=== PATIENT | female | born 1940 | race Caucasian/White ===

== ENCOUNTER 2019-09-19 00:51 | Emergency (ER) | payer MEDICARE, OTHER ==
[2019-09-19] MEDS ORDERED: NORMAL SALINE 1000 ML 1,000 ML IV ONE (01:45)
[2019-09-19] MEDS ORDERED: ONDANSETRON HCL INJ/PF 4 MG/2 ML SDV IV ONE (01:45)
[2019-09-19 02:06] LABS: ALBUMIN 4.4 g/dL (3.5-5.0); ALKALINE PHOSPHATASE 96 U/L (38-126); ANION GAP 12 (5-19); ASPARTATE AMINO TRANSFERASE 36 U/L (14-36); BILIRUBIN,DIRECT 0.1 mg/dL (0.0-0.4); BLOOD UREA NITROGEN 15 mg/dL (7-20); CALCIUM 9.7 mg/dL (8.4-10.2); CARBON DIOXIDE 27 mmol/L (22-30); CHLORIDE 102 mmol/L (98-107); GLUCOSE 197 mg/dL (75-110); POTASSIUM 3.6 mmol/L (3.6-5.0); TOTAL PROTEIN 7.6 g/dL (6.3-8.2)
[2019-09-19] MEDS ORDERED: MORPHINE SULFATE 10 MG/ML INJ IV ONE ×2 (02:15→03:17)
[2019-09-19 02:21] LABS: ABSOLUTE BASOPHILS # (AUTO) 0.1 10^3/uL (0.0-0.2); ABSOLUTE EOSINOPHILS # (AUTO) 0.1 10^3/uL (0.0-0.6); ABSOLUTE LYMPHOCYTES (AUTO) 1.6 10^3/uL (0.5-4.7); ABSOLUTE MONOCYTES (AUTO) 0.7 10^3/uL (0.1-1.4); ABSOLUTE NEUT (AUTO) 11.4 10^3/uL (1.7-8.2); BASOPHILS % (AUTO) 0.7 % (0-2); EOSINOPHILS % (AUTO) 0.8 % (0-6); HEMATOCRIT 40.1 % (36.0-47.0); HEMOGLOBIN 13.2 g/dL (12.0-15.5); LYMPHOCYTES % (AUTO) 11.4 % (13-45); MEAN CORPUSCULAR HEMOGLOBIN 28.2 pg (27.0-33.4); MEAN CORPUSCULAR HGB CONC 32.9 g/dL (32.0-36.0); MEAN CORPUSCULAR VOLUME 86 fl (80-97); PLATELET COUNT 228 10^3/uL (150-450); RED BLOOD COUNT 4.69 10^6/uL (3.72-5.28); RED CELL DISTRIBUTION WIDTH 14.7 % (11.5-14.0); SEGMENTED NEUTROPHILS % (AUTO) 82.1 % (42-78); TOTAL CELLS COUNTED % (AUTO) 100 %; WHITE BLOOD COUNT 13.9 10^3/uL (4.0-10.5)
--- NOTE | 2019-09-19 03:36 | RADIOLOGY REPORT (SQ) ---
CT abdomen and pelvis with contrast on 09/19/2019 at 2:44 AM CLINICAL INDICATION: Generalized abdominal pain, nausea and vomiting and diarrhea TECHNIQUE: Multiple axial images are obtained throughout the abdomen and pelvis following the administration of IV contrast, 89 mL of Omnipaque 350contrast was administered intravenously without complication. This exam was performed according to our departmental dose-optimization program, which includes automated exposure control, adjustment of the mA and/or kV according to patient size and/or use of iterative reconstruction technique. Total DLP is 1088.8 mGy*cm. COMPARISON: None FINDINGS: Abdomen: There is a trace right pleural effusion. There is septal thickening in the lung bases suggesting mild edema. There is a very small hiatal hernia. There is fatty infiltration of the liver. The patient is status post cholecystectomy. Solid abdominal organs are otherwise unremarkable. Mild vascular calcifications are noted. There is no abdominal adenopathy. 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 It is unknown how acute or chronic the SMA occlusion is. The CHULA appears patent. There is no free fluid or free air within the abdomen. The abdominal portion of the GI tract is unremarkable. No pneumatosis or definite evidence of bowel ischemia is noted. Pelvis: The patient is status post hysterectomy. There is no pelvic adenopathy. Pelvic portion of the GI tract including the appendix is unremarkable. There is no free fluid in the pelvis. Degenerative changes are noted in the spine. IMPRESSION: 1. 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 The combination of findings raises question of at least an etiology of chronic mesenteric ischemia. No CT changes of ischemic bowel are identified to suggest acute bowel ischemia. Would recommend vascular surgery consultation. Dr. Martinez was made aware of this finding and recommendation by myself by phone on 09/19/2019 at 3:34 AM eastern time. 2. Small hiatal hernia. 3. Trace right pleural effusion with findings suggesting mild edema in the lung bases. 4. Fatty infiltration of the liver.
[2019-09-19 05:17] VITALS: BP 143/119
[2019-09-19] MEDS ORDERED: HEPARIN SOD (PORCINE) 1,000 UNIT/ML 1 ML VIAL IV STA (05:39)
--- NOTE | 2019-09-19 05:54 | ER Document Report ---
Entered by GARY SALAS SCRIBE 09/19/19 0218 Acting as scribe for:VIVIEN LAWLER IV, MD ED GI/ - General Chief Complaint: Abdominal Pain Stated Complaint: ABDOMINAL PAIN Time Seen by Provider: 09/19/19 01:16 Mode of Arrival: Medic Information source: Patient, Emergency Med Personnel Notes: This 79 year old female patient brought in by EMS from home presents to the ED today with complaints of sudden onset generalized abdominal pain with associated nausea/vomiting/diarrhea that occurred prior to arrival. Patient states that she was trying to take her PM medications around 2300 when she had x2 episodes of vomiting and diarrhea. She reports that the pain radiates to her back. ED nurse reports a history of hypertension, COPD, breast cancer with right lumpectomy in 2001, and a "minor [place]." - Related Data Allergies/Adverse Reactions: No Known Allergies Allergy (Unverified 09/19/19 01:55) Past Medical History - General Information source: Patient - Social History Smoking Status: Former Smoker Cigarette use (# per day): No Chew tobacco use (# tins/day): No Smoking Education Provided: No Family History: Reviewed & Not Pertinent Patient has suicidal ideation: No Patient has homicidal ideation: No - Past Medical History Cardiac Medical History: Reports: Hx Hypertension Pulmonary Medical History: Reports: Hx COPD Malignancy Medical History: Reports: Hx Breast Cancer Past Surgical History: Reports: Hx Lumpectomy - Right, 2001 Review of Systems - Review of Systems Constitutional: No symptoms reported EENT: No symptoms reported Cardiovascular: No symptoms reported Respiratory: No symptoms reported Gastrointestinal: See HPI, Abdominal pain, Diarrhea, Nausea, Vomiting Genitourinary: No symptoms reported Female Genitourinary: No symptoms reported Musculoskeletal: See HPI, Back pain Skin: No symptoms reported Hematologic/Lymphatic: No symptoms reported Neurological/Psychological: No symptoms reported -: Yes All other systems reviewed and negative Physical Exam - Vital signs Vitals: Temp 97.8 F 09/19/19 00:51 Interpretation: Normal - General General appearance: Alert, Other - Pain seems out of proportion to physical exam findings - HEENT Head: Normocephalic, Atraumatic Eyes: Normal Pupils: PERRL - Respiratory Respiratory status: No respiratory distress Chest status: Nontender Breath sounds: Normal Chest palpation: Normal - Cardiovascular Rhythm: Regular Heart sounds: Normal auscultation Murmur: No Friction rub: No Gallop: None auscultated - Abdominal Inspection: Normal Distension: No distension Bowel sounds: Normal Tenderness: Nontender - Abdomen soft Organomegaly: No organomegaly - Back Back: Normal, Nontender - Extremities General upper extremity: Normal inspection General lower extremity: Normal inspection - Neurological Neuro grossly intact: Yes Orientation: AAOx4 - Psychological Associated symptoms: Normal affect, Normal mood - Skin Skin Temperature: Warm Skin Moisture: Dry Skin Color: Normal Course - Vital Signs Vital signs: Temp Pulse Resp BP Pulse Ox 97.7 F 101 H 20 143/119 H 94 09/19/19 05:16 09/19/19 05:16 09/19/19 05:16 09/19/19 05:16 09/19/19 05:16 - Laboratory Result Diagrams: 09/19/19 01:35 09/19/19 01:35 Laboratory results interpreted by me: 09/19/19 09/19/19 01:35 01:35 WBC 13.9 H RDW 14.7 H Lymph % (Auto) 11.4 L Absolute Neuts (auto) 11.4 H Seg Neutrophils % 82.1 H Est GFR (MDRD) Non-Af 54 L Glucose 197 H - Diagnostic Test Radiology reviewed: Reports reviewed - EKG Interpretation by Me Additional EKG results interpreted by me: 09/19/19 04:29 EKG obtained on 09/19/2019 at 0424 hrs. was interpreted by this MD. Findings: Atrial fibrillation, rate 105, no P waves are present, there are no obvious patterns of ST segment elevation or depression present to suggest acute myocardial ischemia or infarction. Impression: Atrial fibrillation with n onspecific ST segments. - Consults dr. 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
[2019-09-19] MEDS ORDERED: HYDROMORPHONE HCL INJ/PF 2 MG/ML AMPULE IV ONE (06:04)
--- NOTE | 2019-09-19 20:47 | EKG REPORT ---
SEVERITY:- ABNORMAL ECG - ATRIAL FIBRILLATION MULTIPLE PREMATURE COMPLEXES, VENT BORDERLINE LEFT AXIS DEVIATION ABNRM R PROG, CONSIDER ASMI OR LEAD PLACEMENT NONSPECIFIC T ABNORMALITIES, LATERAL LEADS BORDERLINE PROLONGED QT INTERVAL : Confirmed by: Abiel Jameson 19-Sep-2019 20:46:28
== END 2019-09-19 06:15 | disposition short-term general hospital (02) ==
LOC: ER 00:51
DX: K55.069 Acute infarction of intestine, part and extent unspecified (principal); K44.9 Diaphragmatic hernia without obstruction or gangrene; R10.84 Generalized abdominal pain; I48.91 Unspecified atrial fibrillation; R11.2 Nausea with vomiting, unspecified; R19.7 Diarrhea, unspecified; I10 Essential (primary) hypertension; J44.9 Chronic obstructive pulmonary disease, unspecified; Z20.828 Contact with and (suspected) exposure to other viral communicable diseases; Z85.3 Personal history of malignant neoplasm of breast
CPT/HCPCS: 93005; 96376; 99285; 96361; 96374; 96375; 36415; 83605; 83690; 85025; 80053; 74177; 93010; U0003; J2270; J2405; J7030; C9803; 87635